=== PATIENT | male | born 1985 | race Caucasian/White ===

== ENCOUNTER 2017-05-28 21:51 | Emergency (ER) | payer OTHER ==
[~2017-05-28 21:51] MED LIST: BACTRIM DS TABL1 TAB PO; KEFLEX PO; METRONIDAZOLE PO; PEN-VEE K PO; VICODIN PO
== END 2017-05-28 22:59 | disposition home or self-care (01) ==
LOC: CED 21:51
DX: K08.89 Other specified disorders of teeth and supporting structures (principal); Z79.899 Other long term (current) drug therapy
CPT/HCPCS: 99282